=== PATIENT | female | born 1995 | race African-American/Black ===

== ENCOUNTER 2018-08-27 10:11 | Day surgery (SDC) | payer SELFPAY ==
[2018-08-26 16:02] VITALS: BMI 36.0
[2018-08-27] MEDS ORDERED: LIDOCAINE 1%/EPI 1:100000 (20 ML MULTI DOSE VIAL) ONE (11:41)
[2018-08-27] MEDS ORDERED: PROPOFOL 20 ML ONE ×2 (11:56)
[2018-08-27] MEDS ORDERED: fentaNYL CITRATE 250 MCG/5 ML VIAL ONE ×2 (11:56→13:13)
[2018-08-27] MEDS ORDERED: MIDAZOLAM HCL 2 MG/2 ML SINGLE DOSE VIAL ONE (11:57)
[2018-08-27] MEDS ORDERED: LIDOCAINE HCL/PF 2% SDV 5ML VIAL ONE (11:58)
[2018-08-27] MEDS ORDERED: LIDOCAINE HCL 2% JELLY (5 ML/TUBE) ONE (11:58)
[2018-08-27] MEDS ORDERED: DEXAMETHASONE SOD PHOSPHATE 4 MG/1 ML VIAL ONE (12:13)
[2018-08-27] MEDS ORDERED: ceFAZolin SODIUM 1 GM VIAL ONE (12:13)
[2018-08-27] MEDS ORDERED: ONDANSETRON 4 MG/2 ML VIAL ONE ×2 (12:13→15:23)
[2018-08-27] MEDS ORDERED: KETOROLAC TROMETHAMINE 30 MG/1 ML VIAL ONE (12:13)
[2018-08-27] MEDS ORDERED: NITROGLYCERIN 2% OINTMENT - 1GM PACKET TD ONE (14:37)
[2018-08-27] MEDS ORDERED: oxyCODONE HCL 5 MG TABLET PO PRN (15:40)
[2018-08-27] MEDS ORDERED: ONDANSETRON 4 MG/2 ML VIAL IVPUSH PRN (15:40)
--- NOTE | 2018-08-27 15:41 | OP ---
Operative Note - Note: Operative Date: 08/27/18 Pre-Operative Diagnosis: Bilateral symptomatic macromastia Operation: Bilateral reduction mammoplasty Findings: as dictated Implants: None Post-Operative Diagnosis: Same as Pre-op Surgeon: Buzz Lambert Lavatory Attendant: Dona Cho Anesthesiologist/CLINICAL INFORMATICS DIRECTOR: Alexander Cameron Anesthesia: General, Local Specimens Removed: Right and Left breast skin and tissue Estimated Blood Loss (mls): 100 (ml) Drains & Tubes with Location: none Fluid Volume Replaced (mls): 1,400 (ml LR) Operative Report Dictated: Yes
[2018-08-27] MEDS ORDERED: LACTATED RINGERS SOLUTION 1,000 ML IV SCH (15:45)
[2018-08-27 17:42] VITALS: TEMP 98
[2018-08-27] MEDS ORDERED: oxyCODONE HCL 5 MG TABLET ONE (18:01)
[2018-08-27 19:25] VITALS: BP 110/70; PULSE 91
--- NOTE | 2018-08-29 09:47 | OP ---
DATE OF OPERATION: 08/27/2018 PREOPERATIVE DIAGNOSIS: Bilateral symptomatic macromastia. POSTOPERATIVE DIAGNOSIS: Bilateral symptomatic macromastia. PROCEDURE: Bilateral reduction mammoplasty. ATTENDING SURGEON: Buzz Lambert MD ANESTHESIA: General with LMA. ESTIMATED BLOOD LOSS: 100 mL. SPECIMENS: 1. Right breast skin and tissue to Pathology (1485 g). 2. Left breast skin and tissue to Pathology (1369 g). DRAINS: None. COMPLICATIONS: None. CONDITION: Stable to recovery room, extubated. INDICATIONS: The patient is a 23-year-old female who presents with several years of bilateral symptomatic macromastia. The patient is indicated for surgical reduction of her breasts. The risks, benefits, and alternatives of the surgery were discussed with the patient preoperatively in detail, and all questions were answered. The risks include, but are not limited to, bleeding, infection, pain, need for revision or further surgery, partial or complete nipple loss, decreased or absent nipple sensation, damage to neighboring structures including nerves, arteries, veins, and tendons. The patient understands these risks and has elected to proceed with surgery. DESCRIPTION OF PROCEDURE: After proper identification and marking of the patient in the preoperative holding area, the patient was transported to the operating room and placed supine on the table where noninvasive anesthesia monitors were applied. Intravenous access was established. General anesthesia was administered, and LMA was inserted without difficulty. SCD boots were applied to bilateral extremities. Intravenous antibiotics were then given. At this point, the patient's bilateral breasts were prepped and draped in the usual sterile fashion. The GRECO skin reduction patterns were then infiltrated with 0.5% lidocaine with 1:200,000 epinephrine. An INR pedicle had been designed, and care was taken to avoid injection along the base of the pedicle. A total of 60 mL was injected between the 2 breasts. After a time-out was performed, attention was first turned toward the right breast. A 45-mm cookie cutter was centered around the nipple areolar complex. This incision was then made with a No. 15 blade. The remainder of the GRECO skin reduction pattern incisions were then made, and inferior pedicle was then incised and deepithelialized. At this point, electrocautery was used to perform resection of the breast tissue beginning at the inferomedial aspect of the breast and proceeding superiorly around the inferior pedicle with care taken to avoid undermining at the pedicle. A superior breast tissue resection was then performed, and the breast tissue resection was continued along the lateral aspect of the breast with care again taken to avoid undermining at the pedicle. The breast tissue on the right side was passed off the field and noted to weigh 1485 g. At this point, the right breast pocket was irrigated, and hemostasis was assured. The inferior pedicle was transposed superiorly and was inset to the chest wall at multiple locations using a 2-0 Vicryl suture in a simple interrupted fashion. At this point, the skin flaps were redraped, and a 2-0 nylon suture was placed in a half buried horizontal mattress fashion at the T point along the inframammary fold. The vertical and horizontal limbs were then tucked and stapled closed. There was noted to be an excellent correction of the tissue's preoperative deformity and, therefore, the nipple areolar complex was inset using a 3-0 Monocryl in a buried deep dermal fashion followed by a 4-0 nylon in a simple running fashion. The vertical and horizontal limbs were reapproximated in a layered fashion using a 2-0 Vicryl in an interrupted buried deep dermal fashion followed by a 3-0 V-Lock suture in a running subcuticular fashion. Once all incisions were closed in the right breast, attention was turned towards the left breast where the exact same procedure was performed and; therefore, only one side will be dictated. The left breast skin and tissue was passed off the field as well and noted to weigh 1369 g. The left breast closure was performed in the exact same fashion as the right side and; therefore, only one side will be dictated. Once bilateral breast incisions were completely closed, the SPY system was brought into the field and sterilely draped. A 5-mL intravenous injection of indocyanine green was given, and angiography of bilateral breasts and nipple areolar complexes was performed. There was noted to be good perfusion to bilateral nipple areolar complexes; and therefore, bilateral breasts were cleansed. Gentamicin balm was applied to the vertical and horizontal limbs bilaterally. Steri-Strips were applied around bilateral nipple areolar complexes. At this point, the patient was placed into a soft surgical bra with care taken to ensure adequate padding with fluffs and ABD pads. The patient at this point was slowly awakened and extubated without incident and was transported to the recovery room in stable condition. BUZZ LAMBERT M.D. [id number]
--- NOTE | 2018-09-02 14:51 | PATH ---
Surgical Pathology Report Patient Name: RHIANNA BEATTY [facility]. Rec. #: [id number] /Age/Gender: 1995 (Age: 23) / F Account: [id number] Location[facility] Taken: 08/27/2018 Received: 08/27/2018 Reported: 09/02/2018 Physicians: Buzz Lambert MD Specimen(s) Received A: RIGHT BREAST SKIN AND TISSUE B: LEFT BREAST SKIN AND TISSUE Clinical History Hypertrophy of breasts Final Diagnosis A. BREAST TISSUE AND SKIN, RIGHT, REDUCTION: BREAST TISSUE SHOWING FIBROCYSTIC CHANGES. SKIN WITH NO PATHOLOGIC FINDINGS. B. BREAST, TISSUE AND SKIN, LEFT, REDUCTION: BENIGN BREAST TISSUE SHOWING FIBROCYSTIC CHANGES. SKIN WITH NO PATHOLOGIC FINDINGS. Electronically Signed Micaela Luciano M.D. Gross Description A. Received in formalin labeled "right breast skin and tissue," is a 1537 g, 25.0 x 19.5 x 7.0 cm aggregate of multiple unoriented portions of fibroadipose tissue and brown, unremarkable skin. Sectioning reveals multifocal dense white fibrous tissue. Tester Compressed Gases sections are submitted in 4 cassettes. B. Received in formalin labeled "left breast skin and tissue," is a 1398 g, 19.0 x 18.5 x 7.0 cm unoriented portion of fibroadipose tissue which is partially surfaced by brown, unremarkable skin. Sectioning reveals multifocal dense white fibrous tissue. Tester Compressed Gases sections are submitted in 5 cassettes. /08/29/2018 saudi08/29/2018
== END 2018-08-27 18:30 | disposition home or self-care (01) ==
LOC: FASU 10:11
PROVIDERS: ATTEND Plastic Surgery
PROC: 0H0V0ZZ Alteration of Bilateral Breast, Open Approach (ICD-10-PCS; principal; 2018-08-27 12:00)
DX: N62 Hypertrophy of breast (principal)
CPT/HCPCS: 84703; 88304-TC; 94760